=== PATIENT | male | born 1960 | race Caucasian/White ===

== ENCOUNTER 2020-11-02 14:30 | Emergency (ER) | payer MEDICARE, SELFPAY ==
[2020-11-02 16:20] VITALS: BP 100/61; PULSE 97; RESP 19; TEMP 37.3; O2SAT 94; BMI 28.8
[2020-11-02 17:56] LABS: Hematocrit 38.2 % (42.0-52.0); Hemoglobin 12.2 g/dL (11.7-16.6); Mean Corpuscular HGB Conc 31.9 g/dL (30.0-36.0); Mean Corpuscular Hemoglobin 27.4 pg (28.0-34.0); Mean Corpuscular Volume 85.7 fL (80-94); Platelet Count 693 10^3/cmm (130-400); Red Blood Count 4.46 10^6/uL (4.1-5.3); Red Cell Distribution Width 22.5 % (12.1-15.1)
[2020-11-02 18:02] LABS: Alanine Aminotransferase 14 U/L (0-41); Alkaline Phosphatase 162 IU/L (40-130); Anion Gap 16.6 (5-19); Aspartate Amino Transferase 20 U/L (0-40); Blood Urea Nitrogen 13 mg/dL (8-23); Calcium 8.4 mg/dL (8.5-10.5); Carbon Dioxide 25 mmol/L (22-29); Chloride 100 mmol/L (98-107); Globulin 3.6 g/dL (1.3-4.6); Glomerular Filtration Rate 86.1 mL/min (90-130); Glucose 131 mg/dL (65-115); Osmolality Calculated 288 mOsm/kg (285-295); Potassium 3.6 mmol/L (3.5-5.1); Sodium 138 mmol/L (136-145); Total Bilirubin 0.2 mg/dL (0.15-1.2); Total Protein 6.6 g/dL (6.6-8.7)
[2020-11-02 18:38] LABS: Band Neutrophils Absolute 17.1 10^3/cmm (0.0-1.2); Segmented Neutrophils 42 %; Slide Review Slide Review Perform; Total Cells Counted 100 (0-100); White Blood Count 190.4 10^3/uL (4.0-10.0)
[2020-11-02 18:39] LABS: Absolute Eosinophils 5.7 10^3/cmm (0.0-0.7); Absolute Neutrophil 97.1 10^3/cmm (1.4-6.5); Blastocytes 4 % (0-0); Eosinophils 3 %; Giant Platelets 2+; Lymphocytes 8 %; Monocytes Absolute 5.7 10^3/cmm (0.1-0.6); Platelet Estimate Increased (Normal)
[2020-11-02 18:40] LABS: Anisocytosis 1+; Poikilocytosis 1+
== END 2020-11-02 18:33 ==
LOC: ER 14:39
PROVIDERS: Physician Assistant; PCP Nurse Practitioner Family
DX: Z53.21 Procedure and treatment not carried out due to patient leaving prior to being seen by health care provider (principal)
CPT/HCPCS: 36415; 80053; 85007; 85025